=== PATIENT | female | born 1975 | race Two or more races ===

== ENCOUNTER 2017-06-02 13:16 | Emergency (ER) | payer SELFPAY ==
[~2017-06-02] VITALS: Ht 160 cm; Wt 81.6 kg
[2017-06-02 13:21] VITALS: BP 145/88
[2017-06-02 13:46] LABS: Urine Bacteria NONE SEEN /hpf (None Seen); Urine Blood Negative /uL (Negative); Urine Specific Gravity 1.017 (1.001-1.035); Urine WBC 1 /hpf (0 - 5)
[2017-06-02 14:21] LABS: Basophils # (auto) 0.1 uL; Eosinophils # (auto) 0.4 uL; Eosinophils % (auto) 5.9 % (0.0-7.0); Hemoglobin 13.6 g/dL (12.2-16.2); Lymphocytes % (auto) 27.7 % (10.0-50.0); Mean Corpuscular Hemoglobin 27.4 pg (28.0-32.0); Mean Corpuscular Hgb Conc. 33.1 g/dL (32.0-36.0); Mean Corpuscular Volume 82.6 fL (80.0-100.0); Monocytes # (auto) 0.5 uL; Monocytes % (auto) 6.6 % (0.0-12.0); Neutrophils # (auto) 4.3 uL; Neutrophils % (auto) 58.8 % (37.0-80.0); Nucleated Red Blood Cells % 0.1 %; Platelet Count (auto) 324 10^3/uL (140-450); Red Blood Cells 4.96 10^6/uL (4.0-5.20); Red Cell Distribution Width 14.6 % (11.8-14.3); White Blood Cell 7.3 10^3/uL (4.4-10.8)
[2017-06-02 14:46] LABS: Alanine Aminotransferase 31 U/L (13-56); Albumin 3.9 g/dL (3.4-5.0); Alkaline Phosphatase 106 U/L (45-117); Anion Gap 7 (5-15); Aspartate Aminotransferase 20 U/L (15-37); BUN/Creatinine Ratio 15.2; Bilirubin, Total 0.3 mg/dL (0.2-1.0); Blood Urea Nitrogen 10 mg/dL (7-18); Calcium 8.2 mg/dL (8.5-10.1); Carbon Dioxide 25 mmol/L (21-32); Chloride 106 mmol/L (98-107); GFR African American 127 mL/min; GFR Non-African American 105 mL/min; Glucose 92 mg/dL (74-106); Magnesium 2.2 mg/dL (1.6-2.6); Potassium 4.2 mmol/L (3.5-5.1); Sodium 138 mmol/L (136-145); Total Protein 8.1 g/dL (6.4-8.2)
[2017-06-02] MEDS ORDERED: ASPirin 81 mg TAB PO ONE (16:00)
[2017-06-02] MEDS ORDERED: LORazepam 0.5 MG TAB PO ONE (16:00)
== END 2017-06-02 16:44 | disposition home or self-care (01) ==
LOC: ER 13:22
DX: R07.89 Other chest pain (principal); F41.9 Anxiety disorder, unspecified
CPT/HCPCS: 36415; 80053; 81001; 83735; 84484; 85025; 93005

== ENCOUNTER 2020-09-21 21:19 | Inpatient (IN) | payer MEDICAID ==
[~2020-09-21] VITALS: Ht 165.1 cm; Wt 93.7 kg
[2020-09-21] MEDS ORDERED: ACETAMINOPHEN 325 MG TAB PO ONE (21:45)
[2020-09-21 22:38] LABS: Eosinophils # (auto) 0 10 ^3/uL (0-0.8); Hematocrit 34.7 % (36.0-46.0); Monocytes # (auto) 0.2 10 ^3/uL (0-1.3); Nucleated Red Blood Cells % 0.1 %
[2020-09-21 22:40] LABS: Basophils # (auto) 0 10 ^3/uL (0-0.2); Basophils % (auto) 0.3 % (0.0-2.0); Hemoglobin 11.3 g/dL (12.2-16.2); Mean Corpuscular Hemoglobin 22.7 pg (28.0-32.0); Mean Corpuscular Hgb Conc. 32.6 g/dL (32.0-36.0); Mean Corpuscular Volume 69.7 fL (80.0-100.0); Monocytes % (auto) 3.7 % (0.0-12.0); Neutrophils # (auto) 4.5 10 ^3/uL (1.6-8.6); Red Blood Cells 4.98 10^6/uL (4.0-5.20); Red Cell Distribution Width 17.6 % (11.8-14.3); White Blood Cell 5.8 10^3/uL (4.4-10.8)
[2020-09-21 22:54] LABS: INR 0.97 (0.9-1.15); Partial Thromboplastin Time 29.3 sec (23.0-31.2)
[2020-09-21 22:56] LABS: Albumin 3.1 g/dL (3.4-5.0); Anion Gap 8 (5-15); BUN/Creatinine Ratio 16.4; Blood Urea Nitrogen 12 mg/dL (7-18); Calcium 8.4 mg/dL (8.5-10.1); Carbon Dioxide 24 mmol/L (21-32); Chloride 106 mmol/L (98-107); GFR African American 111 mL/min; GFR Non-African American 92 mL/min; Glucose 118 mg/dL (74-106); Magnesium 2.4 mg/dL (1.6-2.6); Potassium 3.3 mmol/L (3.5-5.1); Sodium 138 mmol/L (136-145)
[2020-09-21 23:01] LABS: Alanine Aminotransferase 35 U/L (13-56); Alkaline Phosphatase 76 U/L (45-117); Aspartate Aminotransferase 45 U/L (15-37); Bilirubin, Total 0.3 mg/dL (0.2-1.0); Total Protein 7.4 g/dL (6.4-8.2)
[2020-09-22] MEDS ORDERED: IOHEXOL 350 MG/ML 100ML IJ ONE (02:50)
[2020-09-22] MEDS ORDERED: REMDESIVIR PER PHARMACY 0 ML IV SCH (04:45)
[2020-09-22] MEDS ORDERED: ACETAMINOPHEN 500 MG TAB PO PRN (04:45)
[2020-09-22] MEDS ORDERED: POTASSIUM CHL 20 Meq TABLET PO ONE (04:45)
[2020-09-22] MEDS ORDERED: NITROGLYCERIN 0.4 MG SL TAB SL PRN (04:45)
[2020-09-22] MEDS ORDERED: MORPHINE SULF INJ 2 MG/ML SYRINGE 1ML IV PRN (04:45)
[2020-09-22] MEDS ORDERED: ONDANSETRON HCL 4 MG/2 ML VIAL IV PRN (04:45)
[2020-09-22] MEDS: IPRATROPIUM BROMIDE HFA AER IN SCH ×4 (06:00→23:04)
[2020-09-22 06:18] LABS: Magnesium 2.2 mg/dL (1.6-2.6)
[2020-09-22 06:27] LABS: CRP High Sensitivity 8.8 mg/dL (< 0.3)
[2020-09-22 06:30] VITALS: BP 111/78
[2020-09-22] MEDS: cefTRIAXone 1GM/50ML D5W 50 ML IV SCH (09:15)
[2020-09-22] MEDS ORDERED: LEVO50TA7 PO (09:31)
[2020-09-22] MEDS ORDERED: MISC4CAP PO (09:31)
[2020-09-22] MEDS: DexAMETHasone SOD PHOS 10MG/1ML VIAL INJ IV SCH (09:31)
[2020-09-22] MEDS ORDERED: NAPRPOW4 XX (09:31)
[2020-09-22] MEDS ORDERED: PANT1INJ3 IV (09:31)
[2020-09-22] MEDS ORDERED: OMEG1CAP59 PO (09:31)
[2020-09-22] MEDS ORDERED: SERT-377 PO (09:31)
[2020-09-22] MEDS ORDERED: SIMV10TA84 PO (09:31)
[2020-09-22] MEDS ORDERED: CHOL20007 PO (09:31)
[2020-09-22] MEDS ORDERED: SERT-376 PO (09:31)
[2020-09-22] MEDS ORDERED: FURO20TA3 PO (09:31)
[2020-09-22] MEDS: CHOLECALCIFEROL (VITD3) 2,000 UNIT CAP/TAB PO SCH (10:02)
[2020-09-22] MEDS: ASCORBIC ACID 1,000 MG TAB PO SCH (10:02)
[2020-09-22] MEDS: ZINC SULFATE 220mg CAP or TAB PO SCH (10:02)
[2020-09-22] MEDS: PANTOPRAZOLE 40 MG TAB PO SCH (10:02)
[2020-09-22] MEDS: AZITHROMYCIN 500MG/ 250ML 250 ML IV SCH (10:02)
[2020-09-22] MEDS: ENOXAPARIN SOD 40 MG/0.4 ML SYRINGE SC SCH ×2 (10:02→22:04)
[2020-09-22] MEDS: ALBUTEROL SULF HFA 90MCG INH 200DOSE IN PRN ×2 (11:49→20:00)
[2020-09-22] MEDS: BUDESONIDE (INHALATION) 180 MCG IH IN SCH ×2 (11:50→20:00)
[2020-09-22] MEDS: ACETAMINOPHEN 325 MG TAB PO PRN (12:05)
[2020-09-22] MEDS ORDERED: REMDESIVIR 200 MG in NS 210ml LOADING DOSE ADULT IV ONE (13:00)
[2020-09-22] MEDS: IVERMECTIN 3 MG TAB PO SCH (13:21)
[2020-09-22 13:36] VITALS: BP 116/68
[2020-09-22 15:00] VITALS: BP 116/68
[2020-09-22] MEDS ORDERED: TOCILIZUMAB 400 MG in SODIUM CHL 0.9% 80 ML IV ONE (15:00)
[2020-09-22 17:00] VITALS: BP 116/62
[2020-09-22 22:20] VITALS: BP 120/69
[2020-09-23 05:20] VITALS: BP 102/73
[2020-09-23] MEDS: ALBUTEROL SULF HFA 90MCG INH 200DOSE IN PRN ×3 (06:26→23:30)
[2020-09-23] MEDS: BUDESONIDE (INHALATION) 180 MCG IH IN SCH ×2 (06:26→19:43)
[2020-09-23] MEDS: IPRATROPIUM BROMIDE HFA AER IN SCH ×4 (06:26→22:00)
[2020-09-23 07:00] LABS: Basophils # (auto) 0 10 ^3/uL (0-0.2); Basophils % (auto) 0.3 % (0.0-2.0); Eosinophils # (auto) 0 10 ^3/uL (0-0.8); Lymphocytes # (auto) 1.1 10 ^3/uL (0.4-5.4); Monocytes # (auto) 0.5 10 ^3/uL (0-1.3); Monocytes % (auto) 9.8 % (0.0-12.0); Neutrophils # (auto) 3.3 10 ^3/uL (1.6-8.6); Red Cell Distribution Width 17.1 % (11.8-14.3); White Blood Cell 4.9 10^3/uL (4.4-10.8)
[2020-09-23 07:01] LABS: Hematocrit 32.6 % (36.0-46.0); Hemoglobin 10.9 g/dL (12.2-16.2); Lymphocytes % (auto) 21.8 % (10.0-50.0); Mean Corpuscular Hemoglobin 23.2 pg (28.0-32.0); Mean Corpuscular Hgb Conc. 33.3 g/dL (32.0-36.0); Mean Corpuscular Volume 69.5 fL (80.0-100.0); Neutrophils % (auto) 68.1 % (37.0-80.0); Nucleated Red Blood Cells % 0.2 %
[2020-09-23 07:25] LABS: Albumin 2.7 g/dL (3.4-5.0); BUN/Creatinine Ratio 23.6; Calcium 8.2 mg/dL (8.5-10.1); Potassium 3.8 mmol/L (3.5-5.1)
[2020-09-23 07:30] LABS: Bilirubin, Total 0.2 mg/dL (0.2-1.0); Total Protein 6.8 g/dL (6.4-8.2)
[2020-09-23] MEDS ORDERED: TOCILIZUMAB 400 MG in SODIUM CHL 0.9% 80 ML IV ONE (08:00)
[2020-09-23 09:00] VITALS: BP 114/70
[2020-09-23] MEDS: ACETAMINOPHEN 325 MG TAB PO PRN (09:30)
[2020-09-23] MEDS: ZINC SULFATE 220mg CAP or TAB PO SCH (09:46)
[2020-09-23] MEDS: cefTRIAXone 1GM/50ML D5W 50 ML IV SCH (09:46)
[2020-09-23] MEDS: DexAMETHasone SOD PHOS 10MG/1ML VIAL INJ IV SCH (09:46)
[2020-09-23] MEDS: ASCORBIC ACID 1,000 MG TAB PO SCH (09:47)
[2020-09-23] MEDS: PANTOPRAZOLE 40 MG TAB PO SCH (09:47)
[2020-09-23] MEDS: CHOLECALCIFEROL (VITD3) 2,000 UNIT CAP/TAB PO SCH (09:47)
[2020-09-23] MEDS: ENOXAPARIN SOD 40 MG/0.4 ML SYRINGE SC SCH ×2 (09:47→21:35)
[2020-09-23] MEDS: IVERMECTIN 3 MG TAB PO SCH (09:48)
[2020-09-23] MEDS: AZITHROMYCIN 500MG/ 250ML 250 ML IV SCH (10:38)
[2020-09-23 13:00] VITALS: BP 129/73
[2020-09-23] MEDS: REMDESIVIR 100mg 100 MG in SODIUM CHL 0.9% 230 ML IV SCH (14:33)
[2020-09-23] MEDS: SERTRALINE HCL 50 MG TAB PO SCH (14:46)
[2020-09-23 17:00] VITALS: BP 108/52
[2020-09-23 21:48] VITALS: BP 125/58
[2020-09-23] MEDS: TEMAZEPAM 15 MG CAP PO PRN (22:20)
[2020-09-24] VITALS (14 sets, daily range): BP systolic 106–139; BP diastolic 57–85
[2020-09-24] MEDS: BUDESONIDE (INHALATION) 180 MCG IH IN SCH ×2 (05:54→21:52)
[2020-09-24] MEDS: ALBUTEROL SULF HFA 90MCG INH 200DOSE IN PRN ×3 (05:54→21:52)
[2020-09-24] MEDS: IPRATROPIUM BROMIDE HFA AER IN SCH ×4 (05:54→21:53)
[2020-09-24] MEDS: IVERMECTIN 3 MG TAB PO SCH (06:57)
[2020-09-24 07:41] LABS: Albumin 2.4 g/dL (3.4-5.0); Calcium 7.8 mg/dL (8.5-10.1)
[2020-09-24 07:47] LABS: BUN/Creatinine Ratio 31.7; Bilirubin, Total 0.2 mg/dL (0.2-1.0); Total Protein 6.5 g/dL (6.4-8.2)
[2020-09-24] MEDS: cefTRIAXone 1GM/50ML D5W 50 ML IV SCH (08:39)
[2020-09-24] MEDS: CHOLECALCIFEROL (VITD3) 2,000 UNIT CAP/TAB PO SCH (09:42)
[2020-09-24] MEDS: SERTRALINE HCL 50 MG TAB PO SCH (09:42)
[2020-09-24] MEDS: DexAMETHasone SOD PHOS 10MG/1ML VIAL INJ IV SCH (09:42)
[2020-09-24] MEDS: ZINC SULFATE 220mg CAP or TAB PO SCH (09:42)
[2020-09-24] MEDS: ASCORBIC ACID 1,000 MG TAB PO SCH (09:42)
[2020-09-24] MEDS: AZITHROMYCIN 500MG/ 250ML 250 ML IV SCH (09:42)
[2020-09-24] MEDS: PANTOPRAZOLE 40 MG TAB PO SCH (09:43)
[2020-09-24] MEDS: ENOXAPARIN SOD 40 MG/0.4 ML SYRINGE SC SCH ×2 (09:43→22:42)
[2020-09-24] MEDS: REMDESIVIR 100mg 100 MG in SODIUM CHL 0.9% 230 ML IV SCH (14:24)
[2020-09-24] MEDS: guaiFENesin 200 MG/10 ML UD PO PRN ×2 (15:47→22:42)
[2020-09-24] MEDS: TEMAZEPAM 15 MG CAP PO PRN (22:42)
[2020-09-25] VITALS (29 sets, daily range): BP systolic 92–149; BP diastolic 47–79
[2020-09-25] MEDS ORDERED: LORazepam 2MG/ML-1ML VIAL IV PRN (01:15)
[2020-09-25 05:02] LABS: Albumin 2.6 g/dL (3.4-5.0); BUN/Creatinine Ratio 34.5; Calcium 7.6 mg/dL (8.5-10.1); Potassium 3.9 mmol/L (3.5-5.1)
[2020-09-25 05:05] LABS: Bilirubin, Total 0.3 mg/dL (0.2-1.0); Total Protein 6.3 g/dL (6.4-8.2)
[2020-09-25] MEDS: BUDESONIDE (INHALATION) 180 MCG IH IN SCH ×2 (06:23→18:58)
[2020-09-25] MEDS: IPRATROPIUM BROMIDE HFA AER IN SCH ×4 (06:23→22:00)
[2020-09-25] MEDS: ALBUTEROL SULF HFA 90MCG INH 200DOSE IN PRN ×3 (06:24→19:03)
[2020-09-25] MEDS: DexAMETHasone SOD PHOS 10MG/1ML VIAL INJ IV SCH (09:25)
[2020-09-25] MEDS: cefTRIAXone 1GM/50ML D5W 50 ML IV SCH (09:25)
[2020-09-25] MEDS: PANTOPRAZOLE 40 MG TAB PO SCH (09:26)
[2020-09-25] MEDS: FUROSEMIDE 40 MG/4 ML VIAL IV SCH (09:26)
[2020-09-25] MEDS: CHOLECALCIFEROL (VITD3) 2,000 UNIT CAP/TAB PO SCH (09:26)
[2020-09-25] MEDS: ZINC SULFATE 220mg CAP or TAB PO SCH (09:26)
[2020-09-25] MEDS: ASCORBIC ACID 1,000 MG TAB PO SCH (09:26)
[2020-09-25] MEDS: SERTRALINE HCL 50 MG TAB PO SCH ×2 (09:27→22:15)
[2020-09-25] MEDS: ENOXAPARIN SOD 40 MG/0.4 ML SYRINGE SC SCH ×2 (09:27→22:15)
[2020-09-25] MEDS: AZITHROMYCIN 500MG/ 250ML 250 ML IV SCH (10:15)
[2020-09-25] MEDS ORDERED: POTASSIUM CHL 10 Meq TABLET PO ONE (11:00)
[2020-09-25] MEDS: IVERMECTIN 3 MG TAB PO SCH (14:01)
[2020-09-25] MEDS: REMDESIVIR 100mg 100 MG in SODIUM CHL 0.9% 230 ML IV SCH (15:00)
[2020-09-26] VITALS (23 sets, daily range): BP systolic 92–139; BP diastolic 50–78
[2020-09-26 05:29] LABS: Basophils # (auto) 0 10 ^3/uL (0-0.2); Basophils % (auto) 0.1 % (0.0-2.0); Eosinophils # (auto) 0.1 10 ^3/uL (0-0.8); Lymphocytes # (auto) 1.2 10 ^3/uL (0.4-5.4); Monocytes # (auto) 0.3 10 ^3/uL (0-1.3)
[2020-09-26 05:32] LABS: Eosinophils % (auto) 1.5 % (0.0-7.0); Hematocrit 33.4 % (36.0-46.0); Lymphocytes % (auto) 17.3 % (10.0-50.0); Mean Corpuscular Hemoglobin 23.3 pg (28.0-32.0); Mean Corpuscular Hgb Conc. 33.1 g/dL (32.0-36.0); Mean Corpuscular Volume 70.4 fL (80.0-100.0); Monocytes % (auto) 4.1 % (0.0-12.0); Neutrophils # (auto) 5.5 10 ^3/uL (1.6-8.6); Nucleated Red Blood Cells % 0.3 %; Red Blood Cells 4.74 10^6/uL (4.0-5.20); White Blood Cell 7.1 10^3/uL (4.4-10.8)
[2020-09-26 05:48] LABS: Albumin 2.4 g/dL (3.4-5.0); Calcium 7.6 mg/dL (8.5-10.1); Potassium 3.4 mmol/L (3.5-5.1)
[2020-09-26 05:54] LABS: BUN/Creatinine Ratio 45.8; Bilirubin, Total 0.4 mg/dL (0.2-1.0); CRP High Sensitivity 0.34 mg/dL (< 0.3); Total Protein 6.1 g/dL (6.4-8.2)
[2020-09-26] MEDS: IPRATROPIUM BROMIDE HFA AER IN SCH ×3 (07:00→18:00)
[2020-09-26] MEDS: ALBUTEROL SULF HFA 90MCG INH 200DOSE IN PRN ×2 (09:07→19:18)
[2020-09-26] MEDS: BUDESONIDE (INHALATION) 180 MCG IH IN SCH ×2 (09:08→19:18)
[2020-09-26] MEDS: IVERMECTIN 3 MG TAB PO SCH (09:38)
[2020-09-26] MEDS: CHOLECALCIFEROL (VITD3) 2,000 UNIT CAP/TAB PO SCH (09:39)
[2020-09-26] MEDS: ASCORBIC ACID 1,000 MG TAB PO SCH (09:39)
[2020-09-26] MEDS: ZINC SULFATE 220mg CAP or TAB PO SCH (09:39)
[2020-09-26] MEDS: POTASSIUM CHL 10 Meq TABLET PO SCH (09:39)
[2020-09-26] MEDS: PANTOPRAZOLE 40 MG TAB PO SCH (09:39)
[2020-09-26] MEDS: DexAMETHasone SOD PHOS 10MG/1ML VIAL INJ IV SCH (09:39)
[2020-09-26] MEDS: cefTRIAXone 1GM/50ML D5W 50 ML IV SCH (09:39)
[2020-09-26] MEDS: ENOXAPARIN SOD 40 MG/0.4 ML SYRINGE SC SCH ×2 (09:40→22:00)
[2020-09-26] MEDS: SERTRALINE HCL 50 MG TAB PO SCH ×2 (09:40→22:00)
[2020-09-26] MEDS: FUROSEMIDE 40 MG/4 ML VIAL IV SCH (10:19)
[2020-09-26] MEDS: AZITHROMYCIN 500MG/ 250ML 250 ML IV SCH (10:19)
[2020-09-26] MEDS: REMDESIVIR 100mg 100 MG in SODIUM CHL 0.9% 230 ML IV SCH (15:00)
[2020-09-27] VITALS (22 sets, daily range): BP systolic 90–132; BP diastolic 31–87
[2020-09-27] MEDS: cefTRIAXone 1GM/50ML D5W 50 ML IV SCH (09:17)
[2020-09-27] MEDS: FUROSEMIDE 40 MG/4 ML VIAL IV SCH (09:30)
[2020-09-27] MEDS: SERTRALINE HCL 50 MG TAB PO SCH ×2 (09:30→22:10)
[2020-09-27] MEDS: POTASSIUM CHL 10 Meq TABLET PO SCH (09:31)
[2020-09-27] MEDS: ZINC SULFATE 220mg CAP or TAB PO SCH (09:31)
[2020-09-27] MEDS: ASCORBIC ACID 1,000 MG TAB PO SCH (09:31)
[2020-09-27] MEDS: PANTOPRAZOLE 40 MG TAB PO SCH (09:31)
[2020-09-27] MEDS: CHOLECALCIFEROL (VITD3) 2,000 UNIT CAP/TAB PO SCH (09:31)
[2020-09-27] MEDS: ENOXAPARIN SOD 40 MG/0.4 ML SYRINGE SC SCH ×2 (09:31→22:10)
[2020-09-27] MEDS: DexAMETHasone SOD PHOS 10MG/1ML VIAL INJ IV SCH (09:32)
[2020-09-27] MEDS ORDERED: POTASSIUM CHL 20 Meq TABLET PO ONE (09:45)
[2020-09-27] MEDS: BUDESONIDE (INHALATION) 180 MCG IH IN SCH ×3 (10:00→23:03)
[2020-09-27] MEDS: IPRATROPIUM BROMIDE HFA AER IN SCH ×2 (18:00→23:02)
[2020-09-27] MEDS: ALBUTEROL SULF HFA 90MCG INH 200DOSE IN PRN (23:00)
[2020-09-28] VITALS (17 sets, daily range): BP systolic 92–123; BP diastolic 49–87
[2020-09-28 05:33] LABS: Basophils # (auto) 0 10 ^3/uL (0-0.2); Eosinophils # (auto) 0.2 10 ^3/uL (0-0.8); Nucleated Red Blood Cells % 0.1 %; White Blood Cell 7.9 10^3/uL (4.4-10.8)
[2020-09-28 05:37] LABS: Basophils % (auto) 0.2 % (0.0-2.0); Eosinophils % (auto) 2.7 % (0.0-7.0); Hematocrit 33.3 % (36.0-46.0); Lymphocytes # (auto) 1.3 10 ^3/uL (0.4-5.4); Lymphocytes % (auto) 16.4 % (10.0-50.0); Mean Corpuscular Hemoglobin 23.3 pg (28.0-32.0); Mean Corpuscular Hgb Conc. 33.2 g/dL (32.0-36.0); Mean Corpuscular Volume 70.3 fL (80.0-100.0); Monocytes # (auto) 0.5 10 ^3/uL (0-1.3); Monocytes % (auto) 5.8 % (0.0-12.0); Neutrophils # (auto) 5.9 10 ^3/uL (1.6-8.6); Neutrophils % (auto) 74.9 % (37.0-80.0); Red Blood Cells 4.74 10^6/uL (4.0-5.20); Red Cell Distribution Width 16.7 % (11.8-14.3)
[2020-09-28 05:57] LABS: Potassium 3.5 mmol/L (3.5-5.1)
[2020-09-28 06:02] LABS: Calcium 7.8 mg/dL (8.5-10.1)
[2020-09-28] MEDS: BUDESONIDE (INHALATION) 180 MCG IH IN SCH ×2 (06:45→19:29)
[2020-09-28] MEDS: IPRATROPIUM BROMIDE HFA AER IN SCH ×4 (06:45→22:26)
[2020-09-28] MEDS: ALBUTEROL SULF HFA 90MCG INH 200DOSE IN PRN ×3 (07:11→19:29)
[2020-09-28] MEDS: FUROSEMIDE 40 MG/4 ML VIAL IV SCH (10:19)
[2020-09-28] MEDS: DexAMETHasone SOD PHOS 10MG/1ML VIAL INJ IV SCH (10:19)
[2020-09-28] MEDS: cefTRIAXone 1GM/50ML D5W 50 ML IV SCH (10:19)
[2020-09-28] MEDS: ZINC SULFATE 220mg CAP or TAB PO SCH (10:20)
[2020-09-28] MEDS: PANTOPRAZOLE 40 MG TAB PO SCH (10:20)
[2020-09-28] MEDS: ASCORBIC ACID 1,000 MG TAB PO SCH (10:20)
[2020-09-28] MEDS: POTASSIUM CHL 10 Meq TABLET PO SCH (10:20)
[2020-09-28] MEDS: SERTRALINE HCL 50 MG TAB PO SCH ×2 (10:21→21:33)
[2020-09-28] MEDS: CHOLECALCIFEROL (VITD3) 2,000 UNIT CAP/TAB PO SCH (10:21)
[2020-09-28] MEDS: ENOXAPARIN SOD 40 MG/0.4 ML SYRINGE SC SCH ×2 (10:21→21:33)
[2020-09-29] VITALS (14 sets, daily range): BP systolic 112–123; BP diastolic 52–84
[2020-09-29] MEDS: ALBUTEROL SULF HFA 90MCG INH 200DOSE IN PRN ×2 (07:04→22:36)
[2020-09-29] MEDS: IPRATROPIUM BROMIDE HFA AER IN SCH ×2 (07:04→22:35)
[2020-09-29] MEDS: DexAMETHasone SOD PHOS 10MG/1ML VIAL INJ IV SCH (10:07)
[2020-09-29] MEDS: FUROSEMIDE 40 MG/4 ML VIAL IV SCH (10:07)
[2020-09-29] MEDS: cefTRIAXone 1GM/50ML D5W 50 ML IV SCH (10:07)
[2020-09-29] MEDS: ZINC SULFATE 220mg CAP or TAB PO SCH (10:07)
[2020-09-29] MEDS: POTASSIUM CHL 10 Meq TABLET PO SCH (10:07)
[2020-09-29] MEDS: PANTOPRAZOLE 40 MG TAB PO SCH (10:08)
[2020-09-29] MEDS: CHOLECALCIFEROL (VITD3) 2,000 UNIT CAP/TAB PO SCH (10:08)
[2020-09-29] MEDS: ASCORBIC ACID 1,000 MG TAB PO SCH (10:08)
[2020-09-29] MEDS: ENOXAPARIN SOD 40 MG/0.4 ML SYRINGE SC SCH ×2 (10:08→23:13)
[2020-09-29] MEDS: SERTRALINE HCL 50 MG TAB PO SCH ×2 (10:08→23:13)
[2020-09-29] MEDS: BUDESONIDE (INHALATION) 180 MCG IH IN SCH (22:35)
[2020-09-30 05:15] VITALS: BP 106/75
[2020-09-30] MEDS: IPRATROPIUM BROMIDE HFA AER IN SCH ×4 (07:43→22:00)
[2020-09-30] MEDS: BUDESONIDE (INHALATION) 180 MCG IH IN SCH ×2 (07:43→20:39)
[2020-09-30] MEDS: ALBUTEROL SULF HFA 90MCG INH 200DOSE IN PRN ×2 (07:43→20:39)
[2020-09-30 09:00] VITALS: BP 114/63
[2020-09-30] MEDS: cefTRIAXone 1GM/50ML D5W 50 ML IV SCH (09:00)
[2020-09-30] MEDS: FUROSEMIDE 40 MG/4 ML VIAL IV SCH (10:00)
[2020-09-30] MEDS: SERTRALINE HCL 50 MG TAB PO SCH ×2 (10:00→22:15)
[2020-09-30] MEDS: POTASSIUM CHL 10 Meq TABLET PO SCH (10:00)
[2020-09-30] MEDS: CHOLECALCIFEROL (VITD3) 2,000 UNIT CAP/TAB PO SCH (10:00)
[2020-09-30] MEDS: DexAMETHasone SOD PHOS 10MG/1ML VIAL INJ IV SCH (10:00)
[2020-09-30] MEDS: ASCORBIC ACID 1,000 MG TAB PO SCH (10:00)
[2020-09-30] MEDS: PANTOPRAZOLE 40 MG TAB PO SCH (10:00)
[2020-09-30] MEDS: ZINC SULFATE 220mg CAP or TAB PO SCH (10:00)
[2020-09-30] MEDS: ENOXAPARIN SOD 40 MG/0.4 ML SYRINGE SC SCH ×2 (10:00→22:16)
[2020-09-30 11:39] LABS: Albumin 3.2 g/dL (3.4-5.0); Calcium 8.8 mg/dL (8.5-10.1); Magnesium 2.3 mg/dL (1.6-2.6); Potassium 3.8 mmol/L (3.5-5.1)
[2020-09-30 11:43] LABS: BUN/Creatinine Ratio 26.7; Bilirubin, Total 0.5 mg/dL (0.2-1.0); Total Protein 7.5 g/dL (6.4-8.2)
[2020-09-30 11:44] LABS: Eosinophils # (auto) 0 10 ^3/uL (0-0.8); Eosinophils % (auto) 0.2 % (0.0-7.0); White Blood Cell 10.5 10^3/uL (4.4-10.8)
[2020-09-30 11:47] LABS: Basophils # (auto) 0.1 10 ^3/uL (0-0.2); Basophils % (auto) 1.1 % (0.0-2.0); Hematocrit 37.2 % (36.0-46.0); Hemoglobin 12.3 g/dL (12.2-16.2); Lymphocytes # (auto) 1.2 10 ^3/uL (0.4-5.4); Mean Corpuscular Hemoglobin 23.4 pg (28.0-32.0); Mean Corpuscular Volume 70.8 fL (80.0-100.0); Monocytes # (auto) 0.7 10 ^3/uL (0-1.3); Monocytes % (auto) 6.5 % (0.0-12.0); Neutrophils # (auto) 8.5 10 ^3/uL (1.6-8.6); Neutrophils % (auto) 81.2 % (37.0-80.0); Nucleated Red Blood Cells % 0.1 %; Red Blood Cells 5.26 10^6/uL (4.0-5.20); Red Cell Distribution Width 17.2 % (11.8-14.3)
[2020-09-30 13:00] VITALS: BP 111/69
[2020-09-30 17:00] VITALS: BP 123/86
[2020-09-30 22:00] VITALS: BP_SYST 107; BP_SYST 137; BP_DIAS 63; BP_DIAS 86
[2020-10-01 05:00] VITALS: BP 107/63
[2020-10-01] MEDS: BUDESONIDE (INHALATION) 180 MCG IH IN SCH (07:40)
[2020-10-01] MEDS: ALBUTEROL SULF HFA 90MCG INH 200DOSE IN PRN (07:40)
[2020-10-01] MEDS: IPRATROPIUM BROMIDE HFA AER IN SCH (07:40)
[2020-10-01 09:00] VITALS: BP 106/64
[2020-10-01] MEDS: cefTRIAXone 1GM/50ML D5W 50 ML IV SCH (09:00)
[2020-10-01] MEDS: CHOLECALCIFEROL (VITD3) 2,000 UNIT CAP/TAB PO SCH (09:48)
[2020-10-01] MEDS: SERTRALINE HCL 50 MG TAB PO SCH (09:48)
[2020-10-01] MEDS: POTASSIUM CHL 10 Meq TABLET PO SCH (09:48)
[2020-10-01] MEDS: FUROSEMIDE 40 MG/4 ML VIAL IV SCH (09:48)
[2020-10-01] MEDS: ASCORBIC ACID 1,000 MG TAB PO SCH (09:48)
[2020-10-01] MEDS: ENOXAPARIN SOD 40 MG/0.4 ML SYRINGE SC SCH (09:48)
[2020-10-01] MEDS: DexAMETHasone SOD PHOS 10MG/1ML VIAL INJ IV SCH (09:48)
[2020-10-01] MEDS: ZINC SULFATE 220mg CAP or TAB PO SCH (09:48)
[2020-10-01] MEDS: PANTOPRAZOLE 40 MG TAB PO SCH (09:48)
[2020-10-01] MEDS ORDERED: PANT40T PO (11:57)
[2020-10-01] MEDS ORDERED: METH4PAK PO (11:57)
[2020-10-01] MEDS ORDERED: ASCO10003 PO (11:57)
[2020-10-01] MEDS ORDERED: ZINC220T6 PO (11:57)
[2020-10-01] MEDS ORDERED: ALBUAER3 IN (11:57)
[2020-10-01] MEDS ORDERED: ASPI-231 PO (11:57)
[2020-10-01 13:00] VITALS: BP 125/72
== END 2020-10-01 14:40 | disposition home or self-care (01) | DRG 137 ==
LOC: EDBD 21:19 → ER 21:19 → TELE 09-22 04:37 → TELE-EAST 09-22 06:19 → DOU IN ICU 09-24 12:30 → TELE-EAST 09-29 23:01 → EAST 09-30 14:17
PROVIDERS: ADMIT Nurse Practitioner; ATTEND Internal Medicine
PROC: XW033E5 Introduction of Remdesivir Anti-infective into Peripheral Vein, Percutaneous Approach, New Technology Group 5 (ICD-10-PCS; principal; 2020-09-22)
PROC: XW033H5 Introduction of Tocilizumab into Peripheral Vein, Percutaneous Approach, New Technology Group 5 (ICD-10-PCS; 2020-09-22)
PROC: 5A09357 Assistance with Respiratory Ventilation, Less than 24 Consecutive Hours, Continuous Positive Airway Pressure (ICD-10-PCS; 2020-09-25)
PROC: 5A09357 Assistance with Respiratory Ventilation, Less than 24 Consecutive Hours, Continuous Positive Airway Pressure (ICD-10-PCS; 2020-09-25)
PROC: 5A09357 Assistance with Respiratory Ventilation, Less than 24 Consecutive Hours, Continuous Positive Airway Pressure (ICD-10-PCS; 2020-09-25)
PROC: 5A09357 Assistance with Respiratory Ventilation, Less than 24 Consecutive Hours, Continuous Positive Airway Pressure (ICD-10-PCS; 2020-09-25)
PROC: 05HD33Z Insertion of Infusion Device into Right Cephalic Vein, Percutaneous Approach (ICD-10-PCS; 2020-09-27)
PROC: B54MZZA Ultrasonography of Right Upper Extremity Veins, Guidance (ICD-10-PCS; 2020-09-27)
DX: U07.1 COVID-19 (principal); J96.01 Acute respiratory failure with hypoxia; J12.82 Pneumonia due to coronavirus disease 2019; D89.839 Cytokine release syndrome, grade unspecified; E88.09 Other disorders of plasma-protein metabolism, not elsewhere classified; E66.9 Obesity, unspecified; E87.6 Hypokalemia; F41.9 Anxiety disorder, unspecified; R79.89 Other specified abnormal findings of blood chemistry; D64.9 Anemia, unspecified; Z53.29 Procedure and treatment not carried out because of patient's decision for other reasons; Z68.34 Body mass index [BMI] 34.0-34.9, adult; Z79.899 Other long term (current) drug therapy; Z82.49 Family history of ischemic heart disease and other diseases of the circulatory system
CPT/HCPCS: 36415; 36600; 71045; 71275; 80048; 80053; 82728; 82805; 83036; 83605; 83615; 83735; 83880; 84443; 84484; 84702; 85025; 85379; 85610; 85730; 86141; 86850; 86900; 86901; 87426; 93005; 93970; 94640; 94660; 96365; 96367; G0378; J0696; J1100; J2405

== ENCOUNTER 2023-12-24 04:24 | Emergency (ER) | payer MEDICAID ==
[~2023-12-24] VITALS: Ht 157.5 cm; Wt 86.4 kg
[~2023-12-24 04:24] MED LIST: ALBUAER3 IN; ASCO10003 PO; ASPI1TAB20 PO; CHOL20007 PO; FURO20TA3 PO; LEVO50TA7 PO; METH4PAK PO; MISC4CAP PO; NAPRPOW4 XX; OMEG1CAP59 PO; PANT1INJ3 IV; PANT40T PO; SERT-376 PO; SERT-377 PO; SIMV10TA20 PO; ZINC220T6 PO
[2023-12-24 06:28] VITALS: PULSE 60; RESP 16; O2SAT 100
[2023-12-24 07:48] LABS: Basophils # (auto) 0.1 10 ^3/uL (0-0.2); Eosinophils # (auto) 0.3 10 ^3/uL (0-0.8); Hematocrit 33.3 % (36.0-46.0); Lymphocytes # (auto) 3.6 10 ^3/uL (0.4-5.4)
[2023-12-24 07:50] LABS: Eosinophils % (auto) 2.9 % (0.0-7.0); Hemoglobin 10.7 g/dL (12.2-16.2); Lymphocytes % (auto) 37.7 % (10.0-50.0); Mean Corpuscular Hemoglobin 20.6 pg (28.0-32.0); Mean Corpuscular Volume 64.3 fL (80.0-100.0); Monocytes # (auto) 0.7 10 ^3/uL (0-1.3); Monocytes % (auto) 7.7 % (0.0-12.0); Neutrophils # (auto) 4.8 10 ^3/uL (1.6-8.6); Neutrophils % (auto) 50.7 % (37.0-80.0); Platelet Count (auto) 315 10^3/uL (140-450); Red Blood Cells 5.19 10^6/uL (4.0-5.20); Red Cell Distribution Width 23.9 % (11.8-14.3); White Blood Cell 9.5 10^3/uL (4.4-10.8)
[2023-12-24 07:52] LABS: Chloride 108 mmol/L (98-107); Potassium 4.2 mmol/L (3.5-5.1); Sodium 142 mmol/L (136-145)
[2023-12-24 07:53] LABS: Anion Gap 6 (5-15); Calcium 9.6 mg/dL (8.7-10.4); Carbon Dioxide 28 mmol/L (20-31)
[2023-12-24 07:58] LABS: BUN/Creatinine Ratio 20.5 (10.0-20.0); Blood Urea Nitrogen 16 mg/dL (9-23); Glucose 97 mg/dL (74-106)
[2023-12-24 08:20] VITALS: BP 147/75; PULSE 54; RESP 14; TEMP 98.2; O2SAT 100
[2023-12-24 10:13] LABS: Anisocytosis Slight; Hypochromia Marked; Ovalocytes MODERATE; Platelet Estimate Adequate
[2023-12-24] MEDS ORDERED: AZITHROMYCIN 250 MG TAB PO ONE (10:45)
[2023-12-24 12:37] LABS: Urine Bacteria None Seen /hpf (None Seen)
[2023-12-24 13:09] LABS: Urine Blood Negative /uL (Negative); Urine Clarity Clear (Clear); Urine Color Light-Yellow (Yellow); Urine Protein, UAD Negative (Negative); Urine Specific Gravity 1.012 (1.001-1.035); Urine Urobilinogen Normal (Negative); Urine WBC 1 /hpf (0 - 5); Urine pH 5.5 (5.0-9.0)
== END 2023-12-24 09:33 | disposition left against medical advice (07) ==
LOC: ER 04:24
DX: I10 Essential (primary) hypertension (principal); R42 Dizziness and giddiness; R51.9 Headache, unspecified; F41.9 Anxiety disorder, unspecified; E78.5 Hyperlipidemia, unspecified; Z98.890 Other specified postprocedural states; Z79.82 Long term (current) use of aspirin; Z79.899 Other long term (current) drug therapy
CPT/HCPCS: 36415; 80048; 81001; 84484; 85025